=== PATIENT | female | born 1980 | race Caucasian/White ===

== ENCOUNTER 2018-12-29 08:11 | Emergency (ER) | payer MEDICAID ==
[~2018-12-29] VITALS: Ht 165.1 cm; Wt 118.4 kg
[2018-12-29 08:15] VITALS: BP_SYST 124; BP_SYST 16; BP_DIAS 124; BP_DIAS 72
--- NOTE | 2018-12-29 08:32 | NUR ---
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 A&OX4, BREATHING EVEN AND UNLABORED, CLEAR SPEECH, STEADY GAIT, NO FACIAL DROOP. LUNG SOUNDS CTAB. NSR ON MONITOR. PT DENIES PAIN.
--- NOTE | 2018-12-29 09:22 | NUR ---
ERMD AT BEDSIDE TO EVALUATE PT.
[2018-12-29] MEDS ORDERED: MECLIZINE 25 MG TAB PO ONE (10:25)
[2018-12-29] MEDS ORDERED: ONDANSETRON 4 MG ODT PO ONE (10:25)
--- NOTE | 2018-12-29 10:35 | NUR ---
PO MEDS GIVEN-NADR AT THIS TIME, NSR W/O ECT, VSS.
--- NOTE | 2018-12-29 11:08 | NUR ---
ERMD AT BEDSIDE FOR EVALUATION. DIZZINESS AND NAUSEA DECREASED.
[2018-12-29 11:13] VITALS: BP 111/63
--- NOTE | 2018-12-29 11:14 | NUR ---
Patient discharged with v/s stable. Written and verbal after care instructions given and explained. Patient alert, oriented and verbalized understanding of instructions. Ambulatory with steady gait. All questions addressed prior to discharge. ID band removed. Patient advised to follow up with PMD. Rx of ZOFRAN AND MECLIZINE given. Patient educated on indication of medication including possible reaction and side effects. Opportunity to ask questions provided and answered.
== END 2018-12-29 11:14 | disposition home or self-care (01) ==
LOC: MED 08:11
DX: R42 Dizziness and giddiness (principal); J30.2 Other seasonal allergic rhinitis; R03.0 Elevated blood-pressure reading, without diagnosis of hypertension; H92.01 Otalgia, right ear; Z90.49 Acquired absence of other specified parts of digestive tract
CPT/HCPCS: 81002; 81025; 82948; 93005; 99284; J8597; Q0162

== ENCOUNTER 2022-07-28 19:20 | Emergency (ER) | payer MEDICAID, OTHER ==
[~2022-07-28] VITALS: Ht 162.6 cm; Wt 90.7 kg
[2022-07-28 19:46] VITALS: BP 121/70
--- NOTE | 2022-07-28 23:00 | NUR ---
PATIENT AMBULATED TO BED 9
--- NOTE | 2022-07-28 23:25 | NUR ---
Dr. Manley examining patient.
[2022-07-28] MEDS ORDERED: HYDROcodone/APAP 10/325 MG 1 TAB TAB PO ONE (23:35)
[2022-07-28] MEDS ORDERED: LIDOCAINE MPF 1% 10 MG/ML VIAL INJ ONE (23:35)
[2022-07-29] MEDS ORDERED: LIDOCAINE MPF 1% 5 ML ONE ×2 (02:27→02:32)
--- NOTE | 2022-07-29 02:50 | NUR ---
ER physician performed I and D. ER physician ordered two more bottles Xylocaine. Patient tolerated proceedure well, no s/s of distress.
[2022-07-29] MEDS ORDERED: IBUP-1878 PO (02:59)
[2022-07-29] MEDS ORDERED: CEPH-588 PO (03:00)
[2022-07-29] MEDS ORDERED: IBUPROFEN 800 MG TAB PO ONE (03:15)
[2022-07-29 03:17] VITALS: BP 113/59
== END 2022-07-29 03:21 | disposition home or self-care (01) ==
LOC: MED 19:20
DX: L02.411 Cutaneous abscess of right axilla (principal); Z79.899 Other long term (current) drug therapy
CPT/HCPCS: 10060; 90471; 90715; 99285; J2001

== ENCOUNTER 2022-07-31 09:20 | Emergency (ER) | payer OTHER ==
[~2022-07-31] VITALS: Ht 165.1 cm; Wt 91.2 kg
[~2022-07-31 09:20] MED LIST: CEPH-588 PO; IBUP-1878 PO
[2022-07-31 09:25] VITALS: BP 121/83
--- NOTE | 2022-07-31 10:01 | NUR ---
42y/o female presents to ED for recheck. Pt seen here Friday for right under arm abscess , I&D perfomed, packing placed. Pt denies worsening pain, fevers, chills, no signs of infection. Pt compliant on RX of abx given on Friday. No other medical complaints at this time.
--- NOTE | 2022-07-31 10:28 | NUR ---
Patient discharged with v/s stable. Written and verbal after care instructions about Incision and Drainage given and explained. Patient verbalized understanding. Ambulatory with steady gait. All questions addressed prior to discharge. Advised to follow up with PMD.
== END 2022-07-31 10:28 | disposition home or self-care (01) ==
LOC: MED 09:20
DX: L02.411 Cutaneous abscess of right axilla (principal)
CPT/HCPCS: 99281